=== PATIENT | male | born 1995 | race Caucasian/White ===

== ENCOUNTER 2021-06-03 11:18 | Emergency (ER) | payer OTHER ==
[2021-06-03] MEDS ORDERED: HYDROmorphone 0.5 MG/0.5 ML Syringe IVPUSH ONE (11:56)
[2021-06-03] MEDS ORDERED: Acetaminophen/HYDROcodone 325-10 MG Tab PO ONE (12:31)
== END 2021-06-03 13:20 | disposition home or self-care (01) ==
LOC: EDSEX 11:18 → VM.ED 11:18
DX: M25.561 Pain in right knee (principal); M25.551 Pain in right hip
CPT/HCPCS: 71045; 72170; 73560-RT; 96374; 99283; 99284-25